=== PATIENT | male | born 1950 | race Caucasian/White ===

== ENCOUNTER → 2017-11-09 | Outpatient (CLI) | payer MEDICARE | LOC: CARD 10:02 | PROVIDERS: ATTEND Family Medicine | DX: R94.31 Abnormal electrocardiogram [ECG] [EKG] (principal) | CPT/HCPCS: 93017 ==

== ENCOUNTER 2018-01-16 09:12 | Day surgery (SDC) | payer MEDICARE ==
[~2018-01-16] VITALS: Ht 175.3 cm; Wt 72.3 kg
[2018-01-16] MEDS ORDERED: LACTATED RINGERS 1,000 ML IV SCH (10:03)
[2018-01-16 10:07] VITALS: BP 130/75
[2018-01-16] MEDS ORDERED: NONE PER PT (10:07)
[2018-01-16] MEDS ORDERED: PROPOFOL 10 MG/ML, 20ML ONE ×2 (10:11→10:46)
[2018-01-16] MEDS ORDERED: LIDOCAINE-MPF 2% ,5ML ONE ×2 (10:11)
[2018-01-16] MEDS ORDERED: OMEP20TA62 PO (10:15)
[2018-01-16] MEDS ORDERED: ACETAMINOPHEN 650 MG/20.3 ML UDC ONE (11:09)
[2018-01-16] MEDS ORDERED: OXYcodone 5 MG/5 ML ORAL.SOL UDC ONE (11:09)
== END 2018-01-16 12:25 ==
LOC: OUT 09:12
PROVIDERS: ATTEND Internal Medicine Geriatric Medicine
DX: K22.711 Barrett's esophagus with high grade dysplasia (principal)
CPT/HCPCS: 43270; J2704; J3490; J7120

== ENCOUNTER 2018-03-13 08:15 | Day surgery (SDC) | payer MEDICARE ==
[~2018-03-13] VITALS: Ht 175.3 cm; Wt 71.1 kg
[~2018-03-13 08:15] MED LIST: NONE PER PT; OMEP20TA62 PO
[2018-03-13] MEDS ORDERED: MIDAZOLAM 1 MG/ML, 2ML ONE (09:05)
[2018-03-13] MEDS ORDERED: FENTANYL PF 100 MCG/2ML ONE (09:05)
[2018-03-13] MEDS ORDERED: PROPOFOL 10 MG/ML, 20ML ONE ×2 (09:06)
[2018-03-13 09:13] VITALS: BP 122/77
[2018-03-13] MEDS ORDERED: DEXL60CA2 PO (09:13)
[2018-03-13] MEDS ORDERED: LACTATED RINGERS 1,000 ML IV SCH (09:15)
[2018-03-13] MEDS ORDERED: KETAMINE 100 MG/ML, 5ML ONE (09:27)
[2018-03-13] MEDS ORDERED: ACETAMINOPHEN 325 MG TABLET PO PRN (09:30)
[2018-03-13] MEDS ORDERED: OXYcodone 5 MG/5 ML ORAL.SOL UDC PO PRN (09:30)
[2018-03-13] MEDS ORDERED: MORPHINE SULFATE 4 MG/ML, 1ML IVPush PRN (09:30)
[2018-03-13] MEDS ORDERED: FENTANYL PF 100 MCG/2ML IV PRN (09:30)
[2018-03-13] MEDS ORDERED: LABETALOL 5MG/ML, 20ML IV PRN (09:30)
[2018-03-13] MEDS ORDERED: PROMETHAZINE 25 MG/ML, 1ML IV PRN (09:30)
[2018-03-13] MEDS ORDERED: hydrALAzine 20 MG/ML, 1ML IV PRN (09:30)
== END 2018-03-13 11:35 ==
LOC: OUT 08:15
PROVIDERS: ATTEND Internal Medicine Geriatric Medicine
DX: K22.711 Barrett's esophagus with high grade dysplasia (principal); K21.9 Gastro-esophageal reflux disease without esophagitis; Z88.0 Allergy status to penicillin
CPT/HCPCS: 43270; J2250; J2704; J3010; J7120

== ENCOUNTER 2020-04-09 14:49 | Outpatient (CLI) | payer MEDICARE ==
[~2020-04-09 14:49] MED LIST changes: +DEXL60CA2 PO
[2020-04-09] MEDS ORDERED: ESCI10TA PO (15:39)
[2020-04-09] MEDS ORDERED: ATOR10TA9 PO (15:39)
[2020-04-09] MEDS ORDERED: PANT20TA3 PO (15:39)
[2020-04-09] MEDS ORDERED: GABA300C PO (15:39)
[2020-04-09] MEDS ORDERED: AMIT25TA PO (15:39)
== END 2020-04-09 23:59 | disposition home or self-care (01) ==
LOC: STAR 14:49
PROVIDERS: ATTEND Surgery
DX: Z01.812 Encounter for preprocedural laboratory examination (principal); K40.91 Unilateral inguinal hernia, without obstruction or gangrene, recurrent
CPT/HCPCS: 93005

== ENCOUNTER 2020-04-16 08:03 | Day surgery (SDC) | payer MEDICARE ==
[~2020-04-16] VITALS: Ht 175.3 cm; Wt 75.0 kg
[~2020-04-16 08:03] MED LIST changes: +AMIT25TA PO; +ATOR10TA9 PO; +ESCI10TA PO; +GABA300C PO; +PANT20TA3 PO
[2020-04-16] MEDS ORDERED: LACTATED RINGERS 1,000 ML IV SCH (08:09)
[2020-04-16] MEDS ORDERED: CHLORHEXIDINE 15 ML UDC MM STA (08:12)
[2020-04-16 08:20] VITALS: BP 143/84
[2020-04-16] MEDS ORDERED: MIDAZOLAM 1 MG/ML, 2ML ONE (10:17)
[2020-04-16] MEDS ORDERED: FENTANYL PF 100 MCG/2ML ONE ×3 (10:17→11:46)
[2020-04-16] MEDS ORDERED: PROPOFOL 10 MG/ML, 20ML ONE (10:19)
[2020-04-16] MEDS ORDERED: KETOROLAC 30 MG/1 ML ONE (10:19)
[2020-04-16] MEDS ORDERED: ONDANSETRON 2MG/ML, 2ML ONE (10:19)
[2020-04-16] MEDS ORDERED: CEFAZOLIN 1,000 MG ONE (10:19)
[2020-04-16] MEDS ORDERED: DEXAMETHASONE 4 MG/ML, 5ML ONE (10:19)
[2020-04-16] MEDS ORDERED: BUPIVACAINE/PF-EPI 0.5% 1:200K ONE (10:25)
[2020-04-16] MEDS ORDERED: LABETALOL 5MG/ML, 20ML IV PRN (11:00)
[2020-04-16] MEDS ORDERED: ONDANSETRON 2MG/ML, 2ML IVPush PRN (11:00)
[2020-04-16] MEDS ORDERED: hydrALAzine 20 MG/ML, 1ML IV PRN (11:00)
[2020-04-16] MEDS ORDERED: OXYcodone 5 MG/5 ML ORAL.SOL UDC PO PRN (11:00)
[2020-04-16] MEDS ORDERED: HYDROmorphone 1 MG/ML, 1ML INJ IVPush PRN (11:00)
[2020-04-16] MEDS ORDERED: ACETAMINOPHEN 325 MG TABLET PO PRN (11:00)
[2020-04-16] MEDS ORDERED: OXYcodone 5 MG/5 ML ORAL.SOL UDC ONE (11:46)
[2020-04-16] MEDS: FENTANYL PF 100 MCG/2ML IV PRN ×2 (11:51→11:57)
[2020-04-16] MEDS ORDERED: ACETAMINOPHEN 650 MG/20.3 ML UDC ONE (12:05)
== END 2020-04-16 15:00 | disposition home or self-care (01) ==
LOC: OUT 08:03
PROVIDERS: ATTEND Surgery
DX: K40.91 Unilateral inguinal hernia, without obstruction or gangrene, recurrent (principal); Z11.59 Encounter for screening for other viral diseases; D17.6 Benign lipomatous neoplasm of spermatic cord; E78.5 Hyperlipidemia, unspecified; G50.0 Trigeminal neuralgia; F32.9 Major depressive disorder, single episode, unspecified; F12.90 Cannabis use, unspecified, uncomplicated; Z79.899 Other long term (current) drug therapy; Z88.0 Allergy status to penicillin; Z98.52 Vasectomy status; Z90.49 Acquired absence of other specified parts of digestive tract; Z98.890 Other specified postprocedural states
CPT/HCPCS: 49520; C1781; J0690; J1100; J1885; J2250; J2405; J2704; J3010; J7120; U0001